=== PATIENT | male | born 1945 | race Hispanic/Latino ===

== ENCOUNTER → 2018-07-29 | Day surgery (SDC) | payer MEDICARE, OTHER ==
[2018-07-28 12:01] LABS: BASOPHILS # (AUTO) 0.1 (0.0-0.1); BASOPHILS % 1.3 % (0.0-1.0); EOSINOPHILS # (AUTO) 0.2 (0.0-0.4); EOSINOPHILS % 2.7 % (0.0-6.0); HEMATOCRIT 40.4 % (38.2-49.6); LYMPHOCYTES # (AUTO) 2.3 (1.0-3.2); MEAN CORPUSCULAR HEMOGLOBIN 30.3 pg (28-32); MEAN CORPUSCULAR HGB CONC 32.2 g/dL (31-35); MEAN CORPUSCULAR VOLUME 94.2 fL (81-99); MONOCYTES # (AUTO) 0.7 (0.2-0.8); NEUTROPHILS # (AUTO) 4.9 (2.1-6.9); NEUTROPHILS % 59.5 % (38.7-80.0); PLATELET COUNT 219 x10e3/uL (140-360); RED BLOOD COUNT 4.29 x10e6/uL (4.3-5.7)
[2018-07-28 12:22] LABS: ANION GAP 12.3 mmol/L (8-16); BLOOD UREA NITROGEN 11 mg/dL (7-26); BUN/CREATININE RATIO 11 (6-25); CALCIUM 9.7 mg/dL (8.4-10.2); CARBON DIOXIDE 27 mmol/L (22-29); CHLORIDE 105 mmol/L (98-107); CREATININE, SERUM 1.03 mg/dL (0.72-1.25); EST GLOMERULAR FILTRATION RATE > 60 ML/MIN (60-); GLUCOSE 149 mg/dL (74-118); POTASSIUM 4.3 mmol/L (3.5-5.1); SODIUM 140 mmol/L (136-145)
--- NOTE | 2018-07-28 12:35 | Diagnostic Imaging Report ---
EXAMINATION: PA and lateral views of the chest. COMPARISON: None CLINICAL HISTORY: Preoperative evaluation, ureteral stricture DISCUSSION: Lines/tubes: None. Lungs: Central venous congestion. No pneumonia or pulmonary edema. Pleura: There is no pleural effusion or pneumothorax. Heart and mediastinum: Cardiomegaly. Bones and soft tissues: No acute bony abnormalities. IMPRESSION: Cardiomegaly with central venous congestion. No pulmonary edema or pneumonia. Signed by: Dr. Hai Wu M.D. on 07/28/2018 12:32 PM
[~2018-07-29] MED LIST: CEFTRIAXONE SOD 1 GM VIAL ONE; DESFLURANE 240 ML BTL INH ONE; DEXAMETHASONE SOD PHOS INJ 4 MG/ML VIAL ONE; FENTANYL CITRATE/PF 100MCG/2 ML INJ ONE; FINASTERIDE5 MG PO; HYDRALAZINE HCL25 MG PO; HYDROCHLOROTHIA25 MG PO; IOPAMIDOL 300MG/ML 50ML INFUS..BTL IV ONE; LEVOTHYROXINE112 MCG PO; LEVOTHYROXINE75 MCG; LIDOCAINE HCL 2% LOCAL INJ 5 ML SDV VIAL INJ ONE; LOSARTAN POTASS50 MG PO; MIDAZOLAM HCL 2 MG/2 ML VIAL ONE; ONDANSETRON HCL INJ 2 MG/ML VIAL ONE; PROPOFOL IV EMULSION 10 MG/ML 20 ML VIAL ONE; XARELTO20 MG PO; Z.0.AMLODIPINE BESY1 PO; Z.0.AVODART0.5 MG PO; Z.0.GLIMEPIRIDE4 MG PO; Z.0.TAMSULOSIN HCL0. PO; Z.2.METFORMIN HCL500 PO
[2018-07-29 08:30] VITALS: BP 144/80
--- NOTE | 2018-07-29 09:00 | Operative Report ---
DATE OF PROCEDURE: July 29, 2018 PREOPERATIVE DIAGNOSIS: Urethral stricture disease. POSTOPERATIVE DIAGNOSIS: Urethral stricture disease with BPH. PROCEDURES 1. Retrograde urethrogram. 2. Cystogram. 3. Cystoscopy with urethral dilation. ANESTHESIA: General. ESTIMATED BLOOD LOSS: Minimal. COMPLICATIONS: None. INDICATIONS FOR PROCEDURE: Mr. Harris is a very pleasant 72-year-old male with a history of severe urethral stricture disease, and presents for urethral dilation. He and I had a long discussion about the alternatives, risks and benefits including doing nothing, dilation, direct vision internal urethrotomy, open urethroplasty. He voices understanding of the options, alternatives, risks, and benefits and he elected to proceed. PROCEDURE IN DETAIL: After informed consent was obtained, the patient was taken to the operative suite and placed on the table and underwent general anesthesia. Then we placed the patient in the dorsal lithotomy position, and sterilely prepped and draped for cystoscopy. Retrograde urethrogram was performed revealing at least a 4 cm bulbar urethral stricture with distal meatal stenosis, prostatic hypertrophy and trabeculation of the bladder. Utilizing the cystoscope under direct vision, the filiform was introduced. was used, which was dilated to 17-Omani. The cystoscope was then advanced all the way to the bladder. There was trilobar prostatic hypertrophy with severe trabeculation. A Perez catheter was placed. Cystogram was utilized to confirm there was no evidence of extravasation and Perez catheter in good position. Job#: [id number] BOB
--- NOTE | 2018-07-29 11:37 | Diagnostic Imaging Report ---
Retrograde pyelogram COMPARISON: None HISTORY: CM assisted cystogram TECHNIQUE: Retrograde pyelogram fluoroscopic images provided. Multiple pelvic spot radiographs from the procedure were made available for evaluation. RADIATION DOSE: Fluoroscopy Time: 0.29 min Dose (Kerma) Area Product: 349.2 cGycm2 Air Kerma (AK) value has been reviewed. It is below the limits set by the Radiation Protocol Committee (RPC) committee. DISCUSSION: Retrograde filling of the urinary bladder. No contrast extravasation. IMPRESSION: Limited spot images from a fluoroscopic retrograde cystogram as detailed above. Signed by: Dr. Keiry Tolentino M.D. on 07/29/2018 11:34 AM
== END | disposition home or self-care (01) ==
LOC: OR 05:00
PROVIDERS: ATTEND Urology
DX: N35.9 Urethral stricture, unspecified (principal); N32.89 Other specified disorders of bladder; N40.1 Benign prostatic hyperplasia with lower urinary tract symptoms; N43.40 Spermatocele of epididymis, unspecified; N43.3 Hydrocele, unspecified; I86.1 Scrotal varices; R39.14 Feeling of incomplete bladder emptying; R35.1 Nocturia; N39.0 Urinary tract infection, site not specified; I10 Essential (primary) hypertension; E11.9 Type 2 diabetes mellitus without complications; E03.9 Hypothyroidism, unspecified; D64.9 Anemia, unspecified; I48.91 Unspecified atrial fibrillation; Z88.8 Allergy status to other drugs, medicaments and biological substances; Z01.810 Encounter for preprocedural cardiovascular examination; Z01.812 Encounter for preprocedural laboratory examination; Z01.818 Encounter for other preprocedural examination; Z79.84 Long term (current) use of oral hypoglycemic drugs; Z79.02 Long term (current) use of antithrombotics/antiplatelets; Z68.36 Body mass index [BMI] 36.0-36.9, adult; Z87.891 Personal history of nicotine dependence
CPT/HCPCS: 36415 ×2; 52341; 71046; 74450; 80048; 82948; 85025; 93005; J0696; J1100; J2001; J2250; J2405; Q9967

== ENCOUNTER → 2019-05-12 | Outpatient (CLI) | payer MEDICARE, OTHER ==
[~2019-05-12] MED LIST changes: -CEFTRIAXONE SOD 1 GM VIAL ONE; -DESFLURANE 240 ML BTL INH ONE; -DEXAMETHASONE SOD PHOS INJ 4 MG/ML VIAL ONE; -FENTANYL CITRATE/PF 100MCG/2 ML INJ ONE; -IOPAMIDOL 300MG/ML 50ML INFUS..BTL IV ONE; -LIDOCAINE HCL 2% LOCAL INJ 5 ML SDV VIAL INJ ONE; -MIDAZOLAM HCL 2 MG/2 ML VIAL ONE; -ONDANSETRON HCL INJ 2 MG/ML VIAL ONE; -PROPOFOL IV EMULSION 10 MG/ML 20 ML VIAL ONE
--- NOTE | 2019-05-12 13:49 | Diagnostic Imaging Report ---
EXAMINATION: Scrotal ultrasound CLINICAL INDICATION: Spermatocele. COMPARISON: 12/09/2012. TECHNIQUE: Grayscale and color Doppler evaluation of the scrotum was performed in transverse and longitudinal planes. FINDINGS: The right testicle measures 3.9 x 1.6 x 3 cm. There are no masses or calcifications.. The right epididymis measures 0.6 x 0.6 x 0.7 cm. Small epididymal head cyst measures 0.3 x 0.2 x 0.2 cm, unchanged.. Small varicocele. Trace hydrocele. There is normal flow to the right testicle, without evidence of torsion. The left testicle measures 4 x 1.7 x 2.7 cm. No solid mass. 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 The left epididymis measures 1 x 0.6 x 0.8 cm. No nodules or masses.. Moderate varicocele. No hydrocele. There is normal flow to the left testicle without evidence of torsion. The scrotum has a normal appearance, without focal lesions. Impression: Stable right epididymal head cyst or spermatocele. 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 Small right and moderate left varicocele. Signed by: Dr. Malcom Gardner M.D. on 05/12/2019 1:46 PM
== END ==
LOC: US 11:51
PROVIDERS: ATTEND Urology
DX: N43.40 Spermatocele of epididymis, unspecified (principal)
CPT/HCPCS: 76870; 93976